=== PATIENT | female | born 1995 | race Caucasian/White ===

== ENCOUNTER 2020-06-08 12:54 | Outpatient (CLI) | payer BC, SELFPAY ==
--- NOTE | 2020-06-08 13:09 | US_ITS ---
WS: [id number] THYROID ULTRASOUND HISTORY: THYROID DYSFUNCTION COMPARISON: None available. Right lobe: 5.2 cm x 1.5 cm x 1.8 cm. Volume: 7.2 cm3. Normal size and echotexture. No significant or dominant nodules are present. Left lobe: 4.7 cm x 1.2 cm x 1.3 cm. Volume: 3.7 cm3. Normal size and echotexture. No significant or dominant nodules are present. Isthmus: 0.2 cm. US/US thyroid [id number] IMPRESSION: Normal thyroid ultrasound.
== END 2020-06-08 12:55 | disposition home or self-care (01) ==
LOC: RAD 13:05
PROVIDERS: PCP Nurse Practitioner Family; Visit Provider Nurse Practitioner Family
DX: E07.9 Disorder of thyroid, unspecified (principal)
CPT/HCPCS: 76536

== ENCOUNTER → 2021-02-24 10:41 | Outpatient (BNVA) | payer BC, SELFPAY | PROVIDERS: PCP Nurse Practitioner Family; Visit Provider Obstetrics & Gynecology | DX: Z32.01 Encounter for pregnancy test, result positive (principal) | CPT/HCPCS: 81025 ==

== ENCOUNTER → 2021-03-21 12:00 | Outpatient (BNVA) | payer BC, SELFPAY | PROVIDERS: PCP Nurse Practitioner Family; Visit Provider Obstetrics & Gynecology | DX: O03.9 Complete or unspecified spontaneous abortion without complication (principal); Z11.3 Encounter for screening for infections with a predominantly sexual mode of transmission | CPT/HCPCS: 84702; 85025; 86850; 86900; 87491; 87591 ==

== ENCOUNTER → 2021-03-28 15:03 | Outpatient (BNVA) | payer BC, SELFPAY | PROVIDERS: PCP Nurse Practitioner Family; Visit Provider Obstetrics & Gynecology | DX: O02.1 Missed abortion (principal) | CPT/HCPCS: 84702 ==